=== PATIENT | female | born 1995 | race Caucasian/White ===

== ENCOUNTER 2019-03-05 03:13 | Inpatient (IN) | payer MEDICAID ==
[~2019-03-05] VITALS: Ht 160 cm; Wt 68.9 kg
[2019-03-05] MEDS ORDERED: DEXT 5%/LR + PITOCIN 20UNITS/L 1,000 ML IV SCH (03:23)
[2019-03-05] MEDS ORDERED: LIDOCAINE HCL 1% 20ML VIAL (Pyxis) INJ INFIL SCH (03:30)
[2019-03-05] MEDS ORDERED: MISOPROSTOL 100MCG TABLET VG SCH (03:30)
[2019-03-05] MEDS ORDERED: CARBOPROST TROMETHAMINE 250 MCG/ML AMPUL IM PRN (03:30)
[2019-03-05] MEDS ORDERED: BUTORPHANOL TARTRATE 2 MG/ML VIAL IV PRN (03:30)
[2019-03-05] MEDS ORDERED: NALOXONE HCL 0.4 MG/ML 1ML VIAL IM PRN (03:30)
[2019-03-05] MEDS ORDERED: METHYLERGONOVINE MALEATE 0.2 MG/ML IM PRN (03:30)
[2019-03-05] MEDS ORDERED: AMPICILLIN 2,000 MG in SODIUM CHLORIDE 0.9% 100 ML IV NR (04:00)
[2019-03-05 04:06] LABS: HEMATOCRIT. 37.3 % (36.0-48.0); HEMOGLOBIN. 12.4 g/dL (12.0-16.0); MEAN CORPUSCULAR HEMOGLOBIN 29.8 pg (28.0-32.0); MEAN CORPUSCULAR VOLUME 89.9 fL (81.0-99.0); MEAN PLATELET VOLUME 10.8 fl (7.4-10.4); RED BLOOD CELL COUNT 4.15 mill/uL (4.2-5.4); RED CELL DISTRIBUTION WIDTH 14.4 % (11.6-14.6)
[2019-03-05] MEDS: LACTATED RINGERS 1,000 ML IV SCH ×3 (04:11→15:49)
[2019-03-05 04:13] LABS: PARTIAL THROMBOPLASTIN TIME 29.8 sec (23.4-31.0); PROTHROMBIN TIME 10.7 sec (9.6-11.0)
[2019-03-05] MEDS ORDERED: ROPIVACAINE HCL 10MG/ML 20 ML VIAL EPI ONE (04:30)
[2019-03-05] MEDS ORDERED: ROPIVACAINE HCL/PF EPIDURAL 200 ML EPI SCH ×4 (04:30→18:45)
[2019-03-05 05:03] LABS: PLATELET ESTIMATE DECREASED
[2019-03-05 05:07] LABS: PLATELET 78 x1000/uL (130-400)
[2019-03-05] MEDS ORDERED: EPHEDRINE SULFATE 50MG/ML VIAL ONE (10:00)
[2019-03-05] MEDS ORDERED: LIDOCAINE HCL 2%/EPINEPHRINE 1:100,000 20 ML VIAL INFIL ONE (10:00)
[2019-03-05] MEDS ORDERED: BUPIVACAINE HCL/PF 0.25% (2.5MG/ML) 10ML ONE ×2 (12:48→18:49)
[2019-03-05] MEDS ORDERED: FENTANYL CITRATE/PF 50MCG/ML 2ML VIAL ONE ×2 (12:55→18:49)
[2019-03-05] MEDS ORDERED: SODIUM CHLORIDE 0.9% 10ML VIAL ONE (12:56)
[2019-03-05] MEDS: AMPICILLIN 1,000 MG in SODIUM CHLORIDE 0.9% 50 ML IV SCH ×2 (13:19→19:20)
[2019-03-05 13:36] LABS: HEPATITIS B SURFACE ANTIGEN NEGATIVE
[2019-03-05] MEDS ORDERED: ROPIVACAINE HCL/PF EPIDURAL 200 ML EPI ONE (18:40)
[2019-03-05 20:58] LABS: HEMATOCRIT. 39.4 % (36.0-48.0); HEMOGLOBIN. 13.2 g/dL (12.0-16.0); MEAN CORPUSCULAR HEMOGLOBIN 29.7 pg (28.0-32.0); MEAN PLATELET VOLUME 10.5 fl (7.4-10.4); PLATELET 164 x1000/uL (130-400); RED BLOOD CELL COUNT 4.43 mill/uL (4.2-5.4); RED CELL DISTRIBUTION WIDTH 14.4 % (11.6-14.6)
[2019-03-05 21:23] LABS: PLATELET ESTIMATE NORMAL
[2019-03-06] MEDS ORDERED: DEXT 5%/LR + PITOCIN 20UNITS/L 1,000 ML IV SCH (06:16)
[2019-03-06] MEDS ORDERED: HEMORRHOIDAL SUPP PR PRN (06:30)
[2019-03-06] MEDS ORDERED: LANOLIN OINT 7GM TUBE TOP PRN (06:30)
[2019-03-06] MEDS ORDERED: BISACODYL 10MG SUPP PR PRN (06:30)
[2019-03-06] MEDS ORDERED: RHO(D) IMMUNE GLOBULIN 300 MCG/SYR IM PRN (06:30)
[2019-03-06] MEDS: IBUPROFEN 400MG TABLET PO PRN (07:48)
[2019-03-06 08:45] VITALS: BP 101/50
[2019-03-06 09:15] VITALS: BP 94/43
[2019-03-06] MEDS: GLYCERIN/WITCH HAZEL LEAF MEDICATED PAD TOP PRN (11:16)
[2019-03-06 16:00] VITALS: BP 98/58
[2019-03-06] MEDS: ACETAMINOPHEN WITH CODEINE 300/30MG TABLET PO PRN ×2 (17:34→21:47)
[2019-03-06 21:00] VITALS: BP 95/59
[2019-03-06] MEDS: SIMETHICONE 80MG TABLET CHEW PO SCH (21:47)
[2019-03-06] MEDS: DOCUSATE SODIUM 100MG CAPSULE PO SCH (21:47)
[2019-03-06] MEDS: MAGNESIUM/ALUMINUM HYDROXIDE/SIMETHICONE 30ML UDC PO SCH (21:48)
[2019-03-07 04:00] VITALS: BP 93/63
[2019-03-07] MEDS: PRENATAL VIT/FE FUMARATE/FA TABLET PO SCH (07:45)
[2019-03-07] MEDS: FERROUS SULFATE 325MG TABLET PO SCH ×3 (07:45→17:32)
[2019-03-07] MEDS: ACETAMINOPHEN WITH CODEINE 300/30MG TABLET PO PRN ×2 (07:46→17:32)
[2019-03-07] MEDS: SIMETHICONE 80MG TABLET CHEW PO SCH ×3 (07:46→17:32)
[2019-03-07 08:00] VITALS: BP 94/61
[2019-03-07 09:47] LABS: BASOPHILS % 0.6 % (0.0-2.0); EOSINOPHILS % 0.3 % (0.0-5.0); HEMATOCRIT. 30.7 % (36.0-48.0); HEMOGLOBIN. 10.5 g/dL (12.0-16.0); LYMPHOCYTES % 11.6 % (20.0-50.0); MEAN CORPUSCULAR HEMOGLOBIN 29.8 pg (28.0-32.0); MEAN CORPUSCULAR VOLUME 87.3 fL (81.0-99.0); MEAN PLATELET VOLUME 10.1 fl (7.4-10.4); MONOCYTES % 4.6 % (2.0-8.0); NEUTROPHILS % 82.9 % (40.0-76.0); PLATELET 187 x1000/uL (130-400); RED BLOOD CELL COUNT 3.51 mill/uL (4.2-5.4); RED CELL DISTRIBUTION WIDTH 14.5 % (11.6-14.6)
[2019-03-07] MEDS: MAGNESIUM/ALUMINUM HYDROXIDE/SIMETHICONE 30ML UDC PO SCH ×2 (13:20→17:33)
[2019-03-07 15:44] VITALS: BP 94/51
[2019-03-07 20:00] VITALS: BP 99/56
[2019-03-07] MEDS: DOCUSATE SODIUM 100MG CAPSULE PO SCH (21:20)
[2019-03-08 03:41] VITALS: BP 101/59
[2019-03-08 07:33] VITALS: BP 101/50
[2019-03-08] MEDS: MAGNESIUM/ALUMINUM HYDROXIDE/SIMETHICONE 30ML UDC PO SCH (08:33)
[2019-03-08] MEDS: PRENATAL VIT/FE FUMARATE/FA TABLET PO SCH (08:33)
[2019-03-08] MEDS: SIMETHICONE 80MG TABLET CHEW PO SCH (08:34)
[2019-03-08] MEDS: FERROUS SULFATE 325MG TABLET PO SCH (08:34)
[2019-03-08] MEDS: IBUPROFEN 400MG TABLET PO PRN (08:34)
[2019-03-08 10:10] LABS: BASOPHILS % 0.2 % (0.0-2.0); EOSINOPHILS % 0.4 % (0.0-5.0); HEMATOCRIT. 32.2 % (36.0-48.0); HEMOGLOBIN. 10.9 g/dL (12.0-16.0); LYMPHOCYTES % 13.4 % (20.0-50.0); MEAN CORPUSCULAR HEMOGLOBIN 29.8 pg (28.0-32.0); MEAN PLATELET VOLUME 9.8 fl (7.4-10.4); MONOCYTES % 3.9 % (2.0-8.0); NEUTROPHILS % 82.1 % (40.0-76.0); PLATELET 249 x1000/uL (130-400); RED BLOOD CELL COUNT 3.66 mill/uL (4.2-5.4); RED CELL DISTRIBUTION WIDTH 14.2 % (11.6-14.6)
[2019-03-08] MEDS: GLYCERIN/WITCH HAZEL LEAF MEDICATED PAD TOP PRN (12:44)
== END 2019-03-08 12:55 | disposition home or self-care (01) | DRG 560 ==
LOC: 8 EST LDRP 03:13 → OBSVTOIN 03:13 → 8 EST LDRP 07:30 → 8EST 03-06 06:10
PROVIDERS: ADMIT Obstetrics & Gynecology; ATTEND Obstetrics & Gynecology
PROC: 10D07Z6 Extraction of Products of Conception, Vacuum, Via Natural or Artificial Opening (ICD-10-PCS; principal; 2019-03-06)
PROC: 0W8NXZZ Division of Female Perineum, External Approach (ICD-10-PCS; 2019-03-06)
PROC: 3E0R3BZ Introduction of Anesthetic Agent into Spinal Canal, Percutaneous Approach (ICD-10-PCS; 2019-03-06)
PROC: 00HU33Z Insertion of Infusion Device into Spinal Canal, Percutaneous Approach (ICD-10-PCS; 2019-03-06)
DX: O69.81X0 Labor and delivery complicated by cord around neck, without compression, not applicable or unspecified (principal); O99.824 Streptococcus B carrier state complicating childbirth; Z37.0 Single live birth; Z3A.41 41 weeks gestation of pregnancy
CPT/HCPCS: 36415; 86592; 86703; 86762; 86850; 86900; 87340; 99281; G0378; J0290; J0595; J2210; J2590; J2795; J3010; J3490; J7050

== ENCOUNTER 2023-05-08 14:28 | Observation (INO) | payer MEDICAID, OTHER ==
[~2023-05-08] VITALS: Ht 160 cm; Wt 78.5 kg
== END 2023-05-08 17:30 | disposition home or self-care (01) ==
LOC: 8 EST LDRP 14:28
PROVIDERS: ADMIT Obstetrics & Gynecology; ATTEND Obstetrics & Gynecology
DX: O26.893 Other specified pregnancy related conditions, third trimester (principal); R10.9 Unspecified abdominal pain; O62.9 Abnormality of forces of labor, unspecified; Z3A.39 39 weeks gestation of pregnancy
CPT/HCPCS: 76818; 76805; G0378 ×2; G0379

== ENCOUNTER 2023-05-10 09:45 | Inpatient (IN) | payer OTHER ==
[~2023-05-10] VITALS: Ht 160 cm; Wt 76.2 kg
[2023-05-10] MEDS ORDERED: NALOXONE HCL 0.4 MG/ML 1ML VIAL IM PRN (11:45)
[2023-05-10] MEDS ORDERED: LIDOCAINE HCL 1% 20ML VIAL (Pyxis) INJ INFIL SCH (11:45)
[2023-05-10] MEDS ORDERED: METHYLERGONOVINE MALEATE 0.2 MG/ML IM PRN (11:45)
[2023-05-10] MEDS: LACTATED RINGERS 1,000 ML IV SCH ×7 (13:40→23:42)
[2023-05-10] MEDS: MISOPROSTOL 100MCG TABLET VG PRN ×2 (13:41→20:21)
[2023-05-10 14:54] LABS: CLARITY URINE CLEAR (CLEAR); COLOR URINE YELLOW (YELLOW); GLUCOSE URINE NEGATIVE (NEGATIVE); KETONES URINE 1+ (NEGATIVE); LEUKOCYTE ESTERASE URINE TRACE (NEGATIVE); NITRITE URINE NEGATIVE (NEGATIVE); OCCULT BLOOD URINE NEGATIVE (NEGATIVE); PROTEIN URINE NEGATIVE (NEGATIVE); SPECIFIC GRAVITY URINE 1.015 (1.005-1.030); UROBILINOGEN URINE 0.2 E.U./dL (0.2-1.0)
[2023-05-10 15:19] LABS: *AMPHETAMINES SCREEN URINE NEGATIVE (NEGATIVE); *BARBITURATES SCREEN URINE NEGATIVE (NEGATIVE); *BENZODIAZEPINES SCREEN URINE NEGATIVE (NEGATIVE); *COCAINE SCREEN URINE NEGATIVE (NEGATIVE); CANNABINOID URINE SCREEN NEGATIVE (NEGATIVE); ECSTASY MDMA SCREEN URINE NEGATIVE (NEGATIVE); OPIATES URINE SCREEN NEGATIVE (NEGATIVE); PHENCYCLIDINE URINE SCREEN NEGATIVE (NEGATIVE)
[2023-05-10 15:30] LABS: BACTERIA URINE 1+; RBC URINE 0-2 /hpf (0-2); SQUAMOUS EPITHELIAL CELL URINE 1+ /lpf (RARE/1+); WBC URINE 0-2 /hpf (0-2); YEAST URINE FEW
[2023-05-10 17:49] LABS: BASOPHILS % 0.2 % (0.0-2.0); DIFFERENTIAL COMMENT 0; EOSINOPHILS % 0.2 % (0.0-5.0); HEMATOCRIT. 34.1 % (36.0-48.0); HEMOGLOBIN. 10.9 g/dL (12.0-16.0); LYMPHOCYTES % 17.3 % (20.0-50.0); MEAN CORPUSCULAR HEMOGLOBIN 24.4 pg (28.0-32.0); MEAN CORPUSCULAR HGB CONC 31.9 g/dL (31.0-37.0); MEAN CORPUSCULAR VOLUME 76.6 fL (81.0-99.0); MEAN PLATELET VOLUME 10.5 fl (7.4-10.4); MONOCYTES % 5.1 % (2.0-8.0); NEUTROPHILS % 77.2 % (40.0-76.0); PLATELET 266 x1000/uL (130-400); RED BLOOD CELL COUNT 4.45 mill/uL (4.2-5.4); RED CELL DISTRIBUTION WIDTH 15.8 % (11.6-14.6); WHITE BLOOD COUNT 10.5 x1000/uL (4.5-11.0)
[2023-05-10 17:51] LABS: PARTIAL THROMBOPLASTIN TIME 29.5 sec (23.4-31.0); PROTHROMBIN TIME 10.9 sec (9.6-11.0)
[2023-05-10 18:17] LABS: RUBELLA IGG 53.4 IU/mL (4.99-10)
[2023-05-10 18:18] LABS: HEPATITIS B SURFACE ANTIGEN NEGATIVE; RAPID HIV SCREEN NEGATIVE (NEGATIVE)
[2023-05-10] MEDS ORDERED: MEPERIDINE HCL/PF 25MG/ML CPJ IV PRN (21:30)
[2023-05-10] MEDS ORDERED: ONDANSETRON HCL 4MG/2ML INJ IV PRN (21:30)
[2023-05-10] MEDS ORDERED: LACTATED RINGERS 1,000 ML IV SCH (21:30)
[2023-05-11] MEDS ORDERED: ROPIVACAINE HCL/PF EPIDURAL 200 ML EPI ONE (00:25)
[2023-05-11] MEDS: LACTATED RINGERS 1,000 ML IV SCH ×3 (00:32→04:14)
[2023-05-11] MEDS ORDERED: ROPIVACAINE HCL/PF EPIDURAL 200 ML EPI SCH (01:00)
[2023-05-11] MEDS: OXYTOCIN 30 UNITS/500ML NS PMX 500 ML IV SCH ×2 (09:02→11:02)
[2023-05-11 11:25] VITALS: BP 106/58; PULSE 73; RESP 18; TEMP 98.7; O2SAT 100
[2023-05-11] MEDS ORDERED: GLYCERIN/WITCH HAZEL LEAF MEDICATED PAD TOP PRN (12:30)
[2023-05-11] MEDS ORDERED: BENZOCAINE/LANOLIN/ALOE VERA SPRAY TOP PRN (12:30)
[2023-05-11] MEDS ORDERED: IBUPROFEN 400MG TABLET PO PRN (12:30)
[2023-05-11] MEDS ORDERED: LANOLIN OINT 7GM TUBE TOP PRN (12:30)
[2023-05-11] MEDS: IBUPROFEN 800MG TABLET PO PRN ×2 (12:41→19:26)
[2023-05-11 16:00] VITALS: BP 98/63; PULSE 79; RESP 18; TEMP 97.7
[2023-05-11 20:00] VITALS: BP 100/57; PULSE 78; RESP 18; TEMP 98.6; O2SAT 98
[2023-05-12] MEDS ORDERED: LACTATED RINGERS 1,000 ML IV SCH (02:30)
[2023-05-12 03:00] VITALS: BP 102/64; PULSE 76; RESP 18; TEMP 98.4
[2023-05-12] MEDS ORDERED: FERROUS SULFATE 325MG TABLET PO SCH (07:30)
[2023-05-12 07:33] LABS: BASOPHILS % 0.3 % (0.0-2.0); DIFFERENTIAL COMMENT 0; EOSINOPHILS % 0.9 % (0.0-5.0); HEMATOCRIT. 30.5 % (36.0-48.0); HEMOGLOBIN. 9.9 g/dL (12.0-16.0); LYMPHOCYTES % 21.3 % (20.0-50.0); MEAN CORPUSCULAR HEMOGLOBIN 24.7 pg (28.0-32.0); MEAN CORPUSCULAR HGB CONC 32.5 g/dL (31.0-37.0); MEAN PLATELET VOLUME 10.8 fl (7.4-10.4); MONOCYTES % 4.6 % (2.0-8.0); NEUTROPHILS % 72.9 % (40.0-76.0); PLATELET 231 x1000/uL (130-400); RED BLOOD CELL COUNT 4.02 mill/uL (4.2-5.4); RED CELL DISTRIBUTION WIDTH 16.1 % (11.6-14.6); WHITE BLOOD COUNT 11.4 x1000/uL (4.5-11.0)
[2023-05-12 08:00] VITALS: BP 102/39; PULSE 76; RESP 18; TEMP 98.2; O2SAT 99
[2023-05-12] MEDS ORDERED: PRENATAL VIT/FE FUMARATE/FA TABLET PO SCH (09:00)
== END 2023-05-12 12:20 | disposition home or self-care (01) | DRG 560 ==
LOC: OBSVTOIN 09:45 → 8 EST LDRP 09:45 → 8EST 05-11 11:23
PROVIDERS: ADMIT Obstetrics & Gynecology; ATTEND Obstetrics & Gynecology
PROC: 3E0DXGC Introduction of Other Therapeutic Substance into Mouth and Pharynx, External Approach (ICD-10-PCS; 2023-05-10)
PROC: 10E0XZZ Delivery of Products of Conception, External Approach (ICD-10-PCS; principal; 2023-05-11)
PROC: 0HQ9XZZ Repair Perineum Skin, External Approach (ICD-10-PCS; 2023-05-11)
PROC: 3E0R3BZ Introduction of Anesthetic Agent into Spinal Canal, Percutaneous Approach (ICD-10-PCS; 2023-05-11)
PROC: 00HU33Z Insertion of Infusion Device into Spinal Canal, Percutaneous Approach (ICD-10-PCS; 2023-05-11)
DX: O48.0 Post-term pregnancy (principal); Z37.0 Single live birth; O70.0 First degree perineal laceration during delivery; Z3A.40 40 weeks gestation of pregnancy
CPT/HCPCS: 36415; 80305; 81003; 85025; 86592; 86703; 86762; 86850; 86900; 87340; 99281; G0378; J2175; J2405; J2795; J7120; A4315; J2590